=== PATIENT | male | born 1945 | race Caucasian/White ===

== ENCOUNTER 2020-06-14 14:33 | Emergency (ER) | payer MEDICARE, SELFPAY ==
--- NOTE | 2020-06-14 14:56 | XRR_ITS ---
PROCEDURE INFORMATION: Exam: XR Chest, 1 View Exam date and time: 06/14/2020 3:20 PM Age: 75 years old Clinical indication: Cough; Additional info: Cough, hypoxia, covid TECHNIQUE: Imaging protocol: XR of the chest Views: 1 view. COMPARISON: CR Chest 1 [place] [id number] 01/20/2017 11:29 AM FINDINGS: Lungs: Bilateral opacities consistent with pneumonia, more prominent in the left lower lung. Pleural space: No pleural effusion, no pneumothorax. Heart/Mediastinum: Unremarkable. No cardiomegaly. Bones/joints: No acute findings. XR/XR chest 1V portable [id number] IMPRESSION: Bilateral pneumonia consistent with COVID-19 pneumonia.
--- NOTE | 2020-06-14 14:56 | CTR_ITS ---
PROCEDURE INFORMATION: Exam: CT Head Without Contrast Exam date and time: 06/14/2020 3:02 PM Age: 75 years old Clinical indication: Injury or trauma; Fall; Blunt trauma (contusions or hematomas); Additional info: Fall, AMS TECHNIQUE: Imaging protocol: Computed tomography of the head without contrast. Radiation optimization: All CT scans at this facility use at least one of these dose optimization techniques: automated exposure control; mA and/or kV adjustment per patient size (includes targeted exams where dose is matched to clinical indication); or iterative reconstruction. COMPARISON: CT head wo con* [id number] 01/20/2017 12:52 PM RADIATION DOSE METRICS: Total DLP (mGy-cm): 913.3 FINDINGS: Brain: No hemorrhage. Unremarkable white matter. No mass effect. Cerebral ventricles: Minimal ventricular dilatation. Bones/joints: Unremarkable. No acute fracture. Paranasal sinuses: Visualized sinuses are unremarkable. No fluid levels. Mastoid air cells: Unremarkable. Soft tissues: Unremarkable. CT/CT head wo con* [id number] IMPRESSION: No acute intracranial abnormality. Radiation Dose CTDIVOL = (mGy): DLP = 913.3 (mGy-cm)
--- NOTE | 2020-06-14 14:57 | ECG_ITS ---
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 Measurements Intervals [place] Rate: 89 P: 51 SC: 158 QRS: -12 QRSD: 89 T: 39 QT: 321 QTc: 390 Interpretive Statements SINUS RHYTHM POSSIBLE LEFT ATRIAL ENLARGEMENT [-0.1mV P WAVE IN V1/V2] POSSIBLE LEFT VENTRICULAR HYPERTROPHY [VOLTAGE CRITERIA PLUS LAE OR QRS WIDENING] Compared to ECG 01/20/2017 18:23:12 Sinus bradycardia no longer present T-wave abnormality no longer present Possible ischemia no longer present Electronically Signed On 06-14-2020 16:01:31 CDT by Marzena Armendariz M.D. [id number]
[2020-06-14 15:10] VITALS: BP 156/75; PULSE 100; RESP 18; O2SAT 95
[2020-06-14 15:20] VITALS: BP 156/75; PULSE 100; RESP 19; O2SAT 95
[2020-06-14 15:30] LABS: Basophils % 0.2 %; Hemoglobin 11.8 g/dL (11.7-16.6); Lymphocytes # 0.5 10^3/uL (0.8-4.8); Lymphocytes % 7.5 %; Mean Corpuscular HGB Conc 31.1 g/dL (30.0-36.0); Mean Corpuscular Volume 106.1 fL (80-94); Mean Platelet Volume 8.9 fL (7.4-10.4); Monocytes # 0.3 10^3/uL (0.2-0.9); Monocytes % 4.2 %; Neutrophils # 5.55 10^3/uL (1.8-7.7); Neutrophils % 86.7 %; Nucleated Red Blood Cells % 0 %; Platelet Count 241 10^3/cmm (130-400); Red Blood Count 3.58 10^6/uL (4.1-5.3); Red Cell Distribution Width 12.6 % (12.1-15.1); White Blood Count 6.4 10^3/uL (4.0-10.0)
[2020-06-14 15:55] LABS: Lactic Sepsis W/Reflex 0.7 mmol/L (0.5-2.2)
[2020-06-14 15:57] LABS: Troponin(5th) Baseline 45 ng/L (0-15)
[2020-06-14 16:08] LABS: NT Pro B Type Natriuretic Pept 505 pg/mL (0-450); Procalcitonin 0.27 ng/mL (0-0.5)
[2020-06-14 16:19] LABS: Alanine Aminotransferase 11 U/L (0-41); Albumin Level 2.8 g/dL (3.5-5.2); Alkaline Phosphatase 45 IU/L (40-130); Anion Gap 16.5 (5-19); Aspartate Amino Transferase 19 U/L (0-40); Blood Urea Nitrogen 36 mg/dL (8-23); Calcium 8.8 mg/dL (8.5-10.5); Carbon Dioxide 25 mmol/L (22-29); Chloride 100 mmol/L (98-107); Glucose 133 mg/dL (65-115); Osmolality Calculated 292 mOsm/kg (285-295); Potassium 5.5 mmol/L (3.5-5.1); Sodium 136 mmol/L (136-145); Total Bilirubin 0.3 mg/dL (0.15-1.2); Total Protein 6.8 g/dL (6.6-8.7)
[2020-06-14 16:39] LABS: Add Urine Microscopic? YES; Bilirubin Urine Neg (Negative); Blood Urine 3+ (Negative); Glucose Urine UA Norm (Normal); Ketones Urine 1+ (Negative); Leukocyte Esterase Urine Negative (Negative); Nitrate Urine Negative (Negative); Protein Urine Neg (Negative); Specific Gravity, Urine 1.015 (1.005-1.030); Urine Appearance Clear (CLEAR); Urine Color Yellow (Yellow); Urobilinogen Urine Norm (Negative)
--- NOTE | 2020-06-14 16:57 | ECG_ITS ---
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 Measurements Intervals [place] Rate: 97 P: 49 [place]: 154 QRS: -17 QRSD: 85 T: 46 QT: 317 QTc: 404 Interpretive Statements SINUS RHYTHM POSSIBLE LEFT ATRIAL ENLARGEMENT [-0.1mV P WAVE IN V1/V2] Compared to ECG 06/14/2020 15:30:30 No significant changes Electronically Signed On 06-14-2020 17:27:27 CDT by Marzena Armendariz M.D. [email or web address] [id number] f
[2020-06-14 17:03] LABS: Add Urine Culture? Yes; Bacteria Urine TRACE /hpf; Mucus Urine 1+ /hpf; RBC Urine 40-50 /hpf (0-2); Squamous Epithelial Cell Urine 0-4 /hpf (0-5)
--- NOTE | 2020-06-14 17:24 | ED_ITS ---
HPI - Altered Mental Status General: Chief Complaint: Altered Mental Status Stated Complaint: AMS Time Seen by Provider: 06/14/20 14:34 History of Present Illness: HPI narrative: This patient is a 75-year-old male comes in from [facility] skilled nursing. He was sent over for altered mental status. He has a known diagnosis of Covid. Apparently he was diagnosed with a secondary bacterial infection yesterday and put on Levaquin. He has been on 4 L of oxygen. EMS said his sats were 89% on that and they have increased him to 6 L which he now has a sat of 97. Apparently his mental status change involves repetitive questioning and losing his train of thought. I am not sure what his baseline is or how far off his baseline this is. On my exam he is awake, alert initially was oriented but then became disoriented and was not sure if he had missed lunch or dinner. It was 2:30 in the afternoon. MD complaint: confusion Onset (ago): unknown Severity: moderate Consistency of symptoms: Waxing and Waning Review of Systems General: Reports: ROS unobtainable due to medical condition and ROS unobtainable due to mental status Physical Exam Const: COMMON NORMALS: no acute distress, no limitations and alert GENERAL APPEARANCE: cooperative and comfortable HENMT: HEAD & SCALP: normal to inspection FACE & SINUS: normal facial exam Eye: GENERAL EYE: appearance normal, both eyes and all related structures Neck/C-Spine: COMMON NORMALS: supple, no meningeal signs and no JVD Chest: COMMONS NORMALS: normal inspection of the chest Resp: COMMON NORMALS: normal respiratory effort, No use of accessory muscles and clear to auscultation bilaterally AUSCULTATION: clear to auscultation bilaterally Cardio: COMMON NORMALS: no JVD, regular rate, regular rhythm and No murmurs present (Cardio) RATE: regular rate RHYTHM: regular rhythm GI: COMMON NORMALS: Normal to inspection, nondistended, normoactive bowel sounds present, Soft to palpation and non-tender INSPECTION: Yes normal to inspection AUSCULTATION: Yes normoactive bowel sounds PALPATION: Yes Soft to palpation Back/Pelvis: COMMON NORMALS: thoracic and lumbar spine normal to inspection Extremity: COMMON NORMALS: normal to inspection Neuro: DEVIKA COMA SCALE: document GCS findings Ronan coma scale eye opening: Spontaneous Ronan coma scale verbal response: Confused Devika coma scale motor response: Obey commands Devika coma scale total score: 14 COMMON NORMALS: moves all extremities, no focal motor deficits and no sensory deficits noted SENSORIUM/ORIENTATION: Yes alert MENINGEAL SIGNS: Yes no meningeal signs CRANIAL NERVES: Yes CN normal except as noted Psych: COMMON NORMALS: mental status grossly normal, cooperative and normal affect Skin: COMMON NORMALS: no rashes or lesions noted and turgor normal GENERAL SKIN EXAM: no rashes or lesions noted and turgor normal Course ED course: Chest x-ray does show patchy pneumonia which is consistent with Covid. There could be some bacterial component to it. The patient's work-up including labs and x-ray was pretty unremarkable. His inflammatory markers are not very high. Procalcitonin was negative. CT of his head is still pending as apparently he fell a few days ago and hit his head. If his CT is negative I plan to send him back to the skilled nursing. His sister called and I spoke to her on the phone regarding his condition and plan of care. Vital Signs: Vital signs: Vital Signs Pulse Rate 82 06/14/20 18:22 Respiratory Rate 18 06/14/20 18:22 Blood Pressure 175/72 06/14/20 18:22 Pulse Oximetry 95 06/14/20 18:22 MDM - Altered Mental Status Lab Data: Labs: Lab Results 06/14/20 06/14/20 06/14/20 Range/Units 15:07 15:07 15:07 WBC 6.4 (4.0-10.0) 10^3/ uL RBC 3.58 L (4.1-5.3) 10^6/u L Hgb 11.8 (11.7-16.6) g/dL Hct 38.0 L (42.0-52.0) % MCV 106.1 H (80-94) fL MCH 33.0 (28.0-34.0) pg MCHC 31.1 (30.0-36.0) g/dL RDW 12.6 (12.1-15.1) % Plt Count 241 (130-400) 10^3/c mm MPV 8.9 (7.4-10.4) fL Neut % (Auto) 86.7 % Lymph % (Auto) 7.5 % Graves % (Auto) 4.2 % Eos % (Auto) 0.0 % Baso % (Auto) 0.2 % Neut # (Auto) 5.55 (1.8-7.7) 10^3/u L Lymph # (Auto) 0.5 L (0.8-4.8) 10^3/u L Graves # (Auto) 0.3 (0.2-0.9) 10^3/u L Eos # (Auto) 0.0 (0.0-0.8) 10^3/u L Baso # (Auto) 0.0 (0.0-0.1) 10^3/u L Nucleated RBC % (a uto) 0 % Nucleated RBCs # 0.0 /100WBC Sodium 136 (136-145) mmol/L Potassium 5.5 H (3.5-5.1) mmol/L Chloride 100 (98-107) mmol/L Carbon Dioxide 25 (22-29) mmol/L Anion Gap 16.5 (5-19) BUN 36 H (8-23) mg/dL Creatinine 1.2 (0.7-1.2) mg/dL GFR Calculation Not Reportable Glucose 133 H (65-115) mg/dL Calculated Osmolal ity 292 (285-295) mOsm/k g Lactic Acid 0.7 (0.5-2.2) mmol/L Calcium 8.8 (8.5-10.5) mg/dL Total Bilirubin 0.3 (0.15-1.2) mg/dL AST 19 (0-40) U/L ALT 11 (0-41) U/L Alkaline Phosphata se 45 (40-130) IU/L Troponin T Baselin e (0-15) ng/L NT-Pro-B Natriuret Pep 505 H (0-450) pg/mL Total Protein 6.8 (6.6-8.7) g/dL Albumin 2.8 L (3.5-5.2) g/dL Globulin 4.0 (1.3-4.6) g/dL Procalcitonin 0.27 (0-0.5) ng/mL Urine Color (Yellow) Urine Appearance (CLEAR) Urine pH (5-7) Ur Specific Gravit y (1.005-1.030) Urine Protein (Negative) Urine Glucose (UA) (Normal) Urine Ketones (Negative) Urine Blood (Negative) Urine Nitrate (Negative) Urine Bilirubin (Negative) Urine Urobilinogen (Negative) mg/dL Ur Leukocyte Cara ase (Negative) Urine RBC (0-2) /hpf Urine WBC (0-5) /hpf Ur Squamous Epith Cells (0-5) /hpf Amorphous Sediment Urine Bacteria (NONE) /hpf Urine Mucus /hpf 06/14/20 06/14/20 Range/Units 15:07 15:39 WBC (4.0-10.0) 10^3/ uL RBC (4.1-5.3) 10^6/u L Hgb (11.7-16.6) g/dL Hct (42.0-52.0) % MCV (80-94) fL MCH (28.0-34.0) pg MCHC (30.0-36.0) g/dL RDW (12.1-15.1) % Plt Count (130-400) 10^3/c mm MPV (7.4-10.4) fL Neut % (Auto) % Lymph % (Auto) % Graves % (Auto) % Eos % (Auto) % Baso % (Auto) % Neut # (Auto) (1.8-7.7) 10^3/u L Lymph # (Auto) (0.8-4.8) 10^3/u L Graves # (Auto) (0.2-0.9) 10^3/u L Eos # (Auto) (0.0-0.8) 10^3/u L Baso # (Auto) (0.0-0.1) 10^3/u L Nucleated RBC % (a uto) % Nucleated RBCs # /100WBC Sodium (136-145) mmol/L Potassium (3.5-5.1) mmol/L Chloride (98-107) mmol/L Carbon Dioxide (22-29) mmol/L Anion Gap (5-19) BUN (8-23) mg/dL Creatinine (0.7-1.2) mg/dL GFR Calculation Glucose (65-115) mg/dL Calculated Osmolal ity (285-295) mOsm/k g Lactic Acid (0.5-2.2) mmol/L Calcium (8.5-10.5) mg/dL Total Bilirubin (0.15-1.2) mg/dL AST (0-40) U/L ALT (0-41) U/L Alkaline Phosphata se (40-130) IU/L Troponin T Baselin e 45 H (0-15) ng/L NT-Pro-B Natriuret Pep (0-450) pg/mL Total Protein (6.6-8.7) g/dL Albumin (3.5-5.2) g/dL Globulin (1.3-4.6) g/dL Procalcitonin (0-0.5) ng/mL Urine Color Yellow (Yellow) Urine Appearance Clear (CLEAR) Urine pH 5.0 (5-7) Ur Specific Gravit y 1.015 (1.005-1.030) Urine Protein Neg (Negative) Urine Glucose (UA) Norm (Normal) Urine Ketones 1+ H (Negative) Urine Blood 3+ H (Negative) Urine Nitrate Negative (Negative) Urine Bilirubin Neg (Negative) Urine Urobilinogen Norm (Negative) mg/dL Ur Leukocyte Cara ase Negative (Negative) Urine RBC 40-50 H (0-2) /hpf Urine WBC None (0-5) /hpf Ur Squamous Epith Cells 0-4 H (0-5) /hpf Amorphous Sediment Not Reportable Urine Bacteria Trace (NONE) /hpf Urine Mucus 1+ /hpf Discharge Plan Discharge Patient Disposition: Home Clinical Impression: COVID-19 Pneumonia Qualifiers: Pneumonia type: due to unspecified organism Laterality: bilateral Lung location: unspecified part of lung Qualified Code(s): J18.9 - Pneumonia, unspecified organism Condition: Stable Discharge Orders: Discharge Order (Routine); Ordered 06/14/20 Ordered By: Luna Carlson Referrals: Madelin Venegas MD [Primary Care Provider] - Discharge Diet: Usual diet Discharge Activity: Resume usual activity Patient Instructions: Pneumonia (ED) Activity Restrictions/Additional Instructions: Continue antibiotics as prescribed. Continue oxygen. Continue other regular medications. 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
[2020-06-14 17:51] VITALS: BP 149/61; O2SAT 94
[2020-06-14 18:22] VITALS: BP 175/72; PULSE 82; RESP 18; O2SAT 95
== END 2020-06-14 20:50 | disposition home or self-care (01) ==
PROVIDERS: Emergency Provider Emergency Medicine; PCP Family Medicine
DX: U07.1 COVID-19 (principal); J12.89 Other viral pneumonia
CPT/HCPCS: 12345; 70450; 71045; 80053; 81001; 83605; 83880; 84145; 84484; 85025; 87086; 93005; 99282; 99284

== ENCOUNTER 2021-11-23 14:35 | Emergency (ER) | payer MEDICARE, SELFPAY ==
[2021-11-23] VITALS (8 sets, daily range): BP systolic 106–184; BP diastolic 54–103; PULSE 87–108; RESP 10–22; O2SAT 90–96
--- NOTE | 2021-11-23 14:46 | CT_ITS ---
WS: [id number] CT HEAD NONCONTRAST HISTORY: Symptoms of Acute Stroke, right-sided weakness, confusion. TECHNIQUE: Contiguous axial imaging performed through the brain in 2.5 mm imaging. Bone and soft tiss ue windows. Sagittal and coronal reformats reviewed. All CT scans at [facility] use at least one of these dose optimization techniques: automated exposure control; mA and/or kV adjustment per pa tient size (includes targeted exams where dose is matched to clinical indication); or iterative recon struction. DLP: 1070.65 mGy.cm COMPARISON: 06/14/2020 No acute intracranial hemorrhage, midline shift or mass effect. Mild atrophy and minimal chronic microvascular ischemic changes. No infarct. No sulcal effacement. Ventricles: Normal size with no hydrocephalus. Paranasal sinuses: Small amount mucoperiosteal thickening in the LEFT frontal ethmoid recess. No air- fluid levels within the sinuses. Mastoid air cells: Well pneumatized. Calvarium and scalp: Skull is intact with no soft tissue edema or swelling. CT/CT head wo con* [id number] IMPRESSION: 1. No acute intracranial hemorrhage or edema. 2. Mild atrophy and mild chronic microvascular ischemic disease. Notified Eliazar Rodas DO at 11/23/2021 3:07 PM.
--- NOTE | 2021-11-23 14:46 | ECG_ITS ---
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 Measurements Intervals [place] Rate: 92 P: 57 [place]: 183 QRS: -28 QRSD: 93 T: 58 QT: 352 QTc: 436 Interpretive Statements SINUS RHYTHM POSSIBLE LEFT ATRIAL ENLARGEMENT [-0.1mV P-WAVE IN V1/V2] BORDERLINE LEFT AXIS DEVIATION [QRS AXIS < -20] POSSIBLE LEFT VENTRICULAR HYPERTROPHY [VOLTAGE CRITERIA PLUS LAE OR QRS WIDENING] NONSPECIFIC T-WAVE ABNORMALITY Compared to ECG 06/14/2020 17:12:08 T-wave abnormality now present Electronically Signed On 11-24-2021 11:11:09 CDT by Marzena Armendariz M.D. [id number]
--- NOTE | 2021-11-23 14:48 | W.ED.NEUROSD ---
Documented by User: Eliazar Rodas DO 11/28/21 08:37 HPI - Neuro Symptoms/Deficit General: Chief Complaint: Neuro Symptoms/Deficit Stated Complaint: FALL/AMS Time Seen by Provider: 11/23/21 14:35 Source: patient Mode of arrival: EMS Limitations: altered mental status History of Present Illness: 76-year-old male who presents to the emergency room via EMS. He was reported by skilled nursing staff Around 1230 Today in the Bathroom. They Are Doing Serial Neuro Checks Alimented 1405 He Was Noted to Have Difficulty with His Right Side As Well As Right-Sided Facial Droop As Well As Having Developed Some Dysarthria and Word Finding Difficulties. They Did Note That He Recently Had Stopped Receiving Scheduled Morphine He Was Getting 15 Mg Twice Daily up until Today. I Called and Talked to the Nurse Who Usually Takes Care Of Him and Confirmed That All of the Symptoms Are New. Patient denies any chest pain or shortness of breath. He is difficult to test as he is argumentative with instructions for simple testing such as leg raising testing for forearm drift and other physical test as part of the NIH score. Onset (ago): minute(s) Time: 14:35 Last Observed Normal: 14:05 Location: speech and right face Severity: mild Quality: weak Relieving factors: none Exacerbating factors: none Context: sudden onset Associated symptoms: Deny chest pain, cough, diaphoresis, fevers/chills, headache(s), anorexia, malaise, nausea, seizures, short of breath, syncope, tingling, vertigo, vomiting or weakness Treatments Prior to Arrival: none Review of Systems Const: Denies: fever(s), chills, malaise or diaphoresis ENMT: Denies: throat pain, ear or mastoid pain or ear discharge Card: Denies: chest pain, palpitations, irregular heart rhythm, lightheadedness or syncope Resp: Denies: dyspnea, productive cough or non-productive cough GI: Denies: nausea or vomiting : Denies: flank pain, dysuria, urinary frequency or urinary urgency Skin/Breast: Denies: rash or pruritus Neuro: Denies: headache(s) or vertigo NIH stroke score NIHSS: Level Of Consciousness - 1a: 2 Level Of Consciousness Questions - 1b: Neither Correct Level Of Consciousness Commands - 1c: Both Correct Best Gaze - 2: Normal Visual Hernandez - 3: Partial Hemianopia Facial Palsy - 4: Minor Paralysis Motor Arm Right - 5: Drift Motor Arm Left - 5: No Drift Motor Leg Right - 6: Drift Motor Leg Left - 6: No Drift Limb Ataxia - 7: Present In Two Limbs Sensory - 8: Mild To Moderate Loss Best Language - 9: No Aphasia Dysarthia - 10: Mild/Moderate Dysarthia Extinction And Inattention - 11: 1 Score: Total Score: 13 Physical Exam Const: GENERAL APPEARANCE: cooperative and comfortable ORIENTATION/CONSCIOUSNESS: Yes awake HENMT: COMMON NORMALS: normocephalic and hearing grossly normal bilaterally HEAD & SCALP: normocephalic OTHER: Superficial abrasion and bruising on the right mid mandible inferiorly no active bleeding Eye: COMMON NORMALS: Equal, round and reactive pupils present, EOMs intact bilaterally, conjunctivae normal and no scleral icterus CONJUNCTIVA: Yes conjunctivae normal PUPIL: Yes Equal, round and reactive pupils present Neck/C-Spine: COMMON NORMALS: no JVD Resp: COMMON NORMALS: normal respiratory effort, No retractions, No use of accessory muscles and clear to auscultation bilaterally AUSCULTATION: clear to auscultation bilaterally Cardio: COMMON NORMALS: no JVD, regular rate, regular rhythm and No murmurs present (Cardio) RATE: regular rate RHYTHM: regular rhythm GI: COMMON NORMALS: Soft to palpation and No hepatosplenomegaly present AUSCULTATION: Yes normoactive bowel sounds PALPATION: Yes Soft to palpation, No Tenderness to palpation present (GI), No Guarding due to palpation present (GI) and Yes No hepatosplenomegaly present Extremity: COMMON NORMALS: normal to inspection, capillary refill normal, no clubbing, cyanosis or edema, no calf tenderness and no pedal edema Skin: COMMON NORMALS: no rashes or lesions noted GENERAL SKIN EXAM: no rashes or lesions noted Course Vital Signs: Vital signs: Vital Signs Pulse Rate 93 11/23/21 20:59 Respiratory Rate 18 11/23/21 20:59 Blood Pressure 106/67 11/23/21 20:59 Pulse Oximetry 95 11/23/21 20:59 MDM - Neuro Symptoms/Deficit Medical Decision Making Discussed with [facility] on-call they agree given his stroke score normal CT to go ahead and use TPA. Discussed with the patient's discussed risks and benefits he wishes to proceed. 1638 nursing staff had advised that there is increased swelling on the right lower jaw at the site of an abrasion. Went in to see the patient he does not have any muffled voice is not have difficulty breathing but he does have a large hematoma developing the submandibular area extending to the midline of the neck. His symptoms have improved and his phonation is better. He is able to move his right arm and leg better than he had previously ataxia has improved however he is a significant hematoma developing TPA was stopped. CTA of the head and neck will be done emergently. Care turned over to Dr. Whitfield at change of shift hematoma is expanding TPA has been stopped suspect patient will need intubation to protect his airway and transfer as we do not have ENT available at this time I did talk to Dr. Garrison he will come in and evaluate the patient to advise. Patient had expanding neck hematoma did have to intubate him due to airway compromise. Was a very difficult intubation he never was hypoxic though. Patient excepted to [facility] by Dr. Potter. Medical Records I reviewed the patient's medical records. Lab Data I reviewed the patient's lab results. : 11/23/21 20:01 11/23/21 14:[address] 11/23/21 14:46 IMPRESSION: 1. No acute intracranial hemorrhage or edema. 2. Mild atrophy and mild chronic microvascular ischemic disease. Notified Eliazar Rodas DO at 11/23/2021 3:07 PM. Head/Neck CTA 11/23/21 15:56 IMPRESSION: 1. Distal left middle cerebral artery stenosis. No major occlusion or embolus is identified. 2. Multiple small cortical hyperdensities worrisome for small areas of subarachnoid or focal parenchymal hemorrhage. 3. No large intracranial hemorrhage is identified. IMPRESSION: 1. Moderate right internal carotid artery stenosis. 2. Mild left internal carotid artery stenosis. 3. Marked swelling on the right side of the face is likely due largely to hematoma and posttraumatic changes. ENT consultation suggested. COMMENTS: THIS REPORT CONTAINS FINDINGS THAT MAY BE CRITICAL TO PATIENT CARE. The findings were verbally communicated via telephone conference with ELIAZAR RODAS at 5:49 PM CDT on 11/23/2021. The findings were acknowledged and understood. REFERENCES: NASCET CRITERIA. The degree of internal carotid artery stenosis is based on NASCET criteria. Normal is no stenosis. Mild is less than 50% stenosis. Moderate is 50-69% stenosis. Severe is 70% to 99% stenosis. Total occlusion is no detectable patent lumen. Chest X-Ray 11/23/21 18:44 IMPRESSION: Satisfactory position of endotracheal tube. Laboratory Results WBC 10.2 10^3/uL (4.0-10.0) H 11/23/21 14:58 RBC 4.44 10^6/uL (4.1-5.3) 11/23/21 14:58 Hgb 12.5 g/dL (11.7-16.6) 11/23/21 20:01 Hct 38.2 % (42.0-52.0) L 11/23/21 20:01 MCV 105.9 fl (80-94) H 11/23/21 14:58 MCH 33.3 pg (28.0-34.0) 11/23/21 14:58 MCHC 31.5 g/dL (30.0-36.0) 11/23/21 14:58 RDW 13.8 % (12.1-15.1) 11/23/21 14:58 Plt Count 184 10^3/cmm (130-400) 11/23/21 14:58 MPV 9.4 fL (7.4-10.4) 11/23/21 14:58 Neut % (Auto) 71.4 % 11/23/21 14:58 Lymph % (Auto) 18.1 % 11/23/21 14:58 Crenshaw % (Auto) 9.5 % 11/23/21 14:58 Eos % (Auto) 0.2 % 11/23/21 14:58 Baso % (Auto) 0.2 % 11/23/21 14:58 Neut # (Auto) 7.28 10^3/uL (1.8-7.7) 11/23/21 14:58 Lymph # (Auto) 1.8 10^3/uL (0.8-4.8) 11/23/21 14:58 Crenshaw # (Auto) 1.0 10^3/uL (0.2-0.9) H 11/23/21 14:58 Eos # (Auto) 0.0 10^3/uL (0.0-0.8) 11/23/21 14:58 Baso # (Auto) 0.0 10^3/uL (0.0-0.1) 11/23/21 14:58 Nucleated RBC % (auto) 0 % 11/23/21 14:58 Nucleated RBCs # 0.0 /100WBC 11/23/21 14:58 PT 12.90 SECONDS (12.1-14.9) 11/23/21 14:58 INR 0.94 (0.8-1.2) 11/23/21 14:58 APTT 28.3 SECONDS (23.9-36.7) 11/23/21 14:58 Sodium 139 mmol/L (136-145) 11/23/21 14:58 Potassium 4.5 mmol/L (3.5-5.1) 11/23/21 14:58 Chloride 100 mmol/L (98-107) 11/23/21 14:58 Carbon Dioxide 17 mmol/L (22-29) L 11/23/21 14:58 Anion Gap 26.5 (5-19) H 11/23/21 14:58 BUN 20 mg/dL (8-23) 11/23/21 14:58 Creatinine 1.4 mg/dL (0.7-1.2) H 11/23/21 14:58 GFR Calculation Not Reportable 11/23/21 14:58 Glucose 137 mg/dL (65-115) H 11/23/21 14:58 POC Glucose 123 mg/dL (70-110) H 11/23/21 15:09 Calculated Osmolality 293 mOsm/kg (285-295) 11/23/21 14:58 Calcium 9.7 mg/dL (8.5-10.5) 11/23/21 14:58 Total Bilirubin 0.5 mg/dL (0.15-1.2) 11/23/21 14:58 AST 30 U/L (0-40) 11/23/21 14:58 ALT 7 U/L (0-41) 11/23/21 14:58 Alkaline Phosphatase 59 IU/L (40-130) 11/23/21 14:58 Total Protein 6.6 g/dL (6.6-8.7) 11/23/21 14:58 Albumin 4.3 g/dL (3.5-5.2) 11/23/21 14:58 Globulin 2.3 g/dL (1.3-4.6) 11/23/21 14:58 Urine Color Straw (Yellow) 11/23/21 17:43 Urine Appearance Clear (CLEAR) 11/23/21 17:43 Urine pH 8 (5-7) H 11/23/21 17:43 Ur Specific [place] 1.010 (1.005-1.030) 11/23/21 17:43 Urine Protein Neg (Negative) 11/23/21 17:43 Urine Glucose (UA) Norm (Normal) 11/23/21 17:43 Urine Ketones 1+ (Negative) H 11/23/21 17:43 Urine Blood 3+ (Negative) H 11/23/21 17:43 Urine Nitrate Negative (Negative) 11/23/21 17:43 Urine Bilirubin Neg (Negative) 11/23/21 17:43 Prot Sulfosalicylic Acd Negative (Negative) 11/23/21 17:43 Urine Urobilinogen Neg mg/dL (Negative) 11/23/21 17:43 Ur Leukocyte Esterase Negative (Negative) 11/23/21 17:43 Urine RBC 10-15 /hpf (0-2) H 11/23/21 17:43 Urine WBC None /hpf (0-5) 11/23/21 17:43 Ur Squamous Epith Cells Rare /hpf (0-5) 11/23/21 17:43 Amorphous Sediment Not Reportable 11/23/21 17:43 Urine Bacteria None /hpf (NONE) 11/23/21 17:43 Urine Opiates Screen Positive ng/mL (Negative) H 11/23/21 17:43 Ur Barbiturates Screen Negative ng/mL (Negative) 11/23/21 17:43 Ur Phencyclidine Scrn Negative ng/mL (Negative) 11/23/21 17:43 Ur Amphetamines Screen Negative ng/mL (Negative) 11/23/21 17:43 U Benzodiazepines Scrn Negative ng/mL (Negative) 11/23/21 17:43 Urine Cocaine Screen Negative ng/mL (Negative) 11/23/21 17:43 U Marijuana (THC) Screen Negative ng/mL (Negative) 11/23/21 17:43 SARS-CoV-2 Ag (Rapid) Negative (Negative) 11/23/21 21:13 Discharge Plan Discharge Patient Disposition: Xfer Short-Term Hosp Clinical Impression: Cerebrovascular accident, Hematoma of neck Condition: Stable Referrals: Madelin Venegas MD [Primary Care Provider] - Coding Level of Care Code ED [facility] for Chg Fwd Exam Comprehensive Documented by User: Isidoro Whitfield MD 11/23/21 20:12 HPI - Neuro Symptoms/Deficit General: Chief Complaint: Neuro Symptoms/Deficit Stated Complaint: FALL/AMS Time Seen by Provider: 11/23/21 14:35 NIH stroke score Score: Total Score: 13 Procedures Intubation Time out performed: Yes sedative: Etomidate Mg Given: 10 paralytic: Succinylcholine Mg Given: 150 Assist Device Used: Bougie ET Tube Size: 7.5 ET Tube Uncuffed: No Tube Secured Depth (cm): 26 Tube Secured Location: lips Tube Placement Confirmation: visualized tube passing through cords Patient Tolerated Procedure: well Intubation Complications: none Course Vital Signs: Vital signs: Vital Signs Pulse Rate 93 11/23/21 20:59 Respiratory Rate 18 11/23/21 20:59 Blood Pressure 106/67 11/23/21 20:59 Pulse Oximetry 95 11/23/21 20:59 MDM - Neuro Symptoms/Deficit Medical Decision Making Discussed with [facility] on-call they agree given his stroke score normal CT to go ahead and use TPA. Discussed with the patient's discussed risks and benefits he wishes to proceed. 1609 nursing staff had advised that there is increased swelling on the right lower jaw at the site of an abrasion. Went in to see the patient he does not have any muffled voice is not have difficulty breathing but he does have a large hematoma developing the submandibular area extending to the midline of the neck. His symptoms have improved and his phonation is better. He is able to move his right arm and leg better than he had previously ataxia has improved however he is a significant hematoma developing TPA was stopped. CTA of the head and neck will be done emergently. Patient had expanding neck hematoma did have to intubate him due to airway compromise. Was a very difficult intubation he never was hypoxic though. Patient excepted to [facility] by Dr. Potter. Lab Data : 11/23/21 20:01 11/23/21 14:[address] 11/23/21 14:46 IMPRESSION: 1. No acute intracranial hemorrhage or edema. 2. Mild atrophy and mild chronic microvascular ischemic disease. Notified Eliazar Rodas DO at 11/23/2021 3:07 PM. Head/Neck CTA 11/23/21 15:56 IMPRESSION: 1. Distal left middle cerebral artery stenosis. No major occlusion or embolus is identified. 2. Multiple small cortical hyperdensities worrisome for small areas of subarachnoid or focal parenchymal hemorrhage. 3. No large intracranial hemorrhage is identified. IMPRESSION: 1. Moderate right internal carotid artery stenosis. 2. Mild left internal carotid artery stenosis. 3. Marked swelling on the right side of the face is likely due largely to hematoma and posttraumatic changes. ENT consultation suggested. COMMENTS: THIS REPORT CONTAINS FINDINGS THAT MAY BE CRITICAL TO PATIENT CARE. The findings were verbally communicated via telephone conference with ELIAZAR RODAS at 5:49 PM CDT on 11/23/2021. The findings were acknowledged and understood. REFERENCES: NASCET CRITERIA. The degree of internal carotid artery stenosis is based on NASCET criteria. Normal is no stenosis. Mild is less than 50% stenosis. Moderate is 50-69% stenosis. Severe is 70% to 99% stenosis. Total occlusion is no detectable patent lumen. Chest X-Ray 11/23/21 18:44 IMPRESSION: Satisfactory position of endotracheal tube. Laboratory Results WBC 10.2 10^3/uL (4.0-10.0) H 11/23/21 14:58 RBC 4.44 10^6/uL (4.1-5.3) 11/23/21 14:58 Hgb 12.5 g/dL (11.7-16.6) 11/23/21 20:01 Hct 38.2 % (42.0-52.0) L 11/23/21 20:01 MCV 105.9 fl (80-94) H 11/23/21 14:58 MCH 33.3 pg (28.0-34.0) 11/23/21 14:58 MCHC 31.5 g/dL (30.0-36.0) 11/23/21 14:58 RDW 13.8 % (12.1-15.1) 11/23/21 14:58 Plt Count 184 10^3/cmm (130-400) 11/23/21 14:58 MPV 9.4 fL (7.4-10.4) 11/23/21 14:58 Neut % (Auto) 71.4 % 11/23/21 14:58 Lymph % (Auto) 18.1 % 11/23/21 14:58 Crenshaw % (Auto) 9.5 % 11/23/21 14:58 Eos % (Auto) 0.2 % 11/23/21 14:58 Baso % (Auto) 0.2 % 11/23/21 14:58 Neut # (Auto) 7.28 10^3/uL (1.8-7.7) 11/23/21 14:58 Lymph # (Auto) 1.8 10^3/uL (0.8-4.8) 11/23/21 14:58 Crenshaw # (Auto) 1.0 10^3/uL (0.2-0.9) H 11/23/21 14:58 Eos # (Auto) 0.0 10^3/uL (0.0-0.8) 11/23/21 14:58 Baso # (Auto) 0.0 10^3/uL (0.0-0.1) 11/23/21 14:58 Nucleated RBC % (auto) 0 % 11/23/21 14:58 Nucleated RBCs # 0.0 /100WBC 11/23/21 14:58 PT 12.90 SECONDS (12.1-14.9) 11/23/21 14:58 INR 0.94 (0.8-1.2) 11/23/21 14:58 APTT 28.3 SECONDS (23.9-36.7) 11/23/21 14:58 Sodium 139 mmol/L (136-145) 11/23/21 14:58 Potassium 4.5 mmol/L (3.5-5.1) 11/23/21 14:58 Chloride 100 mmol/L (98-107) 11/23/21 14:58 Carbon Dioxide 17 mmol/L (22-29) L 11/23/21 14:58 Anion Gap 26.5 (5-19) H 11/23/21 14:58 BUN 20 mg/dL (8-23) 11/23/21 14:58 Creatinine 1.4 mg/dL (0.7-1.2) H 11/23/21 14:58 GFR Calculation Not Reportable 11/23/21 14:58 Glucose 137 mg/dL (65-115) H 11/23/21 14:58 POC Glucose 123 mg/dL (70-110) H 11/23/21 15:09 Calculated Osmolality 293 mOsm/kg (285-295) 11/23/21 14:58 Calcium 9.7 mg/dL (8.5-10.5) 11/23/21 14:58 Total Bilirubin 0.5 mg/dL (0.15-1.2) 11/23/21 14:58 AST 30 U/L (0-40) 11/23/21 14:58 ALT 7 U/L (0-41) 11/23/21 14:58 Alkaline Phosphatase 59 IU/L (40-130) 11/23/21 14:58 Total Protein 6.6 g/dL (6.6-8.7) 11/23/21 14:58 Albumin 4.3 g/dL (3.5-5.2) 11/23/21 14:58 Globulin 2.3 g/dL (1.3-4.6) 11/23/21 14:58 Urine Color Straw (Yellow) 11/23/21 17:43 Urine Appearance Clear (CLEAR) 11/23/21 17:43 Urine pH 8 (5-7) H 11/23/21 17:43 Ur Specific [place] 1.010 (1.005-1.030) 11/23/21 17:43 Urine Protein Neg (Negative) 11/23/21 17:43 Urine Glucose (UA) Norm (Normal) 11/23/21 17:43 Urine Ketones 1+ (Negative) H 11/23/21 17:43 Urine Blood 3+ (Negative) H 11/23/21 17:43 Urine Nitrate Negative (Negative) 11/23/21 17:43 Urine Bilirubin Neg (Negative) 11/23/21 17:43 Prot Sulfosalicylic Acd Negative (Negative) 11/23/21 17:43 Urine Urobilinogen Neg mg/dL (Negative) 11/23/21 17:43 Ur Leukocyte Esterase Negative (Negative) 11/23/21 17:43 Urine RBC 10-15 /hpf (0-2) H 11/23/21 17:43 Urine WBC None /hpf (0-5) 11/23/21 17:43 Ur Squamous Epith Cells Rare /hpf (0-5) 11/23/21 17:43 Amorphous Sediment Not Reportable 11/23/21 17:43 Urine Bacteria None /hpf (NONE) 11/23/21 17:43 Urine Opiates Screen Positive ng/mL (Negative) H 11/23/21 17:43 Ur Barbiturates Screen Negative ng/mL (Negative) 11/23/21 17:43 Ur Phencyclidine Scrn Negative ng/mL (Negative) 11/23/21 17:43 Ur Amphetamines Screen Negative ng/mL (Negative) 11/23/21 17:43 U Benzodiazepines Scrn Negative ng/mL (Negative) 11/23/21 17:43 Urine Cocaine Screen Negative ng/mL (Negative) 11/23/21 17:43 U Marijuana (THC) Screen Negative ng/mL (Negative) 11/23/21 17:43 SARS-CoV-2 Ag (Rapid) Negative (Negative) 11/23/21 21:13 Critical Care Time Critical Care Time: Critical Care Time: Yes Total Critical Care Time: 50 Attestation: The high probability of a clinically significant, sudden or life threatening deterioration of the patient's neuro system(s) required my full and direct attention, intervention and personal management. The critical care time is as shown. This time is in addition to time spent performing any reported procedures but includes the following: [x] Data and vital sign review and interpretation [x] Patient assessment, examination and intervention [x] Documentation [x] Medication orders and management Discharge Plan Discharge Patient Disposition: Xfer Short-Term Hosp Clinical Impression: Cerebrovascular accident, Hematoma of neck Condition: Stable Referrals: Madelin Venegas MD [Primary Care Provider] - Coding Level of Care Code ED [facility] for Chg Fwd Exam Comprehensive
[2021-11-23 15:09] LABS: Basophils % 0.2 %; Eosinophils % 0.2 %; Hemoglobin 14.8 g/dL (11.7-16.6); Lymphocytes # 1.8 10^3/uL (0.8-4.8); Lymphocytes % 18.1 %; Mean Corpuscular HGB Conc 31.5 g/dL (30.0-36.0); Mean Corpuscular Hemoglobin 33.3 pg (28.0-34.0); Mean Corpuscular Volume 105.9 fl (80-94); Mean Platelet Volume 9.4 fL (7.4-10.4); Monocytes % 9.5 %; Neutrophils # 7.28 10^3/uL (1.8-7.7); Neutrophils % 71.4 %; Nucleated Red Blood Cells % 0 %; Platelet Count 184 10^3/cmm (130-400); Red Blood Count 4.44 10^6/uL (4.1-5.3); Red Cell Distribution Width 13.8 % (12.1-15.1); White Blood Count 10.2 10^3/uL (4.0-10.0)
[2021-11-23] MEDS: labetalol 5 mg/mL SDV 20mL IVP (15:31)
[2021-11-23 15:33] LABS: Alanine Aminotransferase 7 U/L (0-41); Albumin Level 4.3 g/dL (3.5-5.2); Alkaline Phosphatase 59 IU/L (40-130); Blood Urea Nitrogen 20 mg/dL (8-23); Calcium 9.7 mg/dL (8.5-10.5); Carbon Dioxide 17 mmol/L (22-29); Chloride 100 mmol/L (98-107); Globulin 2.3 g/dL (1.3-4.6); Glucose 137 mg/dL (65-115); Osmolality Calculated 293 mOsm/kg (285-295); Sodium 139 mmol/L (136-145); Total Bilirubin 0.5 mg/dL (0.15-1.2); Total Protein 6.6 g/dL (6.6-8.7)
[2021-11-23 15:34] LABS: Anion Gap 26.5 (5-19); Aspartate Amino Transferase 30 U/L (0-40); Potassium 4.5 mmol/L (3.5-5.1)
--- NOTE | 2021-11-23 15:35 | PC.NURSE ---
Pt weight 242.7 pounds / 110/3 Kg
--- NOTE | 2021-11-23 15:56 | CTR_ITS ---
PROCEDURE INFORMATION: Exam: CT Angiography Head With Contrast, Arteriography Exam date and time: 11/23/2021 4:48 PM Age: 76 years old Clinical indication: Syncope and collapse; Patient HX: Possible stroke/ severe swelling right side jaw; Additional info: CVA TECHNIQUE: Imaging protocol: Computed tomography angiography of the head with contrast. Exam focused on the arteries. 3D rendering (Not supervised by radiologist): MIP and/or 3D reconstructed images were created by the technologist. Radiation optimization: All CT scans at this facility use at least one of these dose optimization techniques: automated exposure control; mA and/or kV adjustment per patient size (includes targeted exams where dose is matched to clinical indication); or iterative reconstruction. Contrast material: VISI 320; Contrast volume: 95 ml; Contrast route: INTRAVENOUS (IV); COMPARISON: 1. CT head wo con* [id number] 11/23/2021 2:[address] head wo con* [id number] 06/14/2020 5:17 PM RADIATION DOSE METRICS: Total DLP (mGy-cm): 2770.51 FINDINGS: ANTERIOR CIRCULATION: Right internal carotid artery: Unremarkable. Intracranial segment is patent with no significant stenosis. No aneurysm. Right middle cerebral artery: Unremarkable. No occlusion or significant stenosis. No aneurysm. Right anterior cerebral artery: Unremarkable. No occlusion or significant stenosis. No aneurysm. Left internal carotid artery: Unremarkable. Intracranial segment is patent with no significant stenosis. No aneurysm. Left middle cerebral artery: There is focal stenosis in the distal left middle cerebral artery at the trifurcation level. Left anterior cerebral artery: Unremarkable. No occlusion or significant stenosis. No aneurysm. POSTERIOR CIRCULATION: Right vertebral artery: Unremarkable. No occlusion or significant stenosis. No aneurysm. Left vertebral artery: Unremarkable. No occlusion or significant stenosis. No aneurysm. Basilar artery: Unremarkable. No occlusion or significant stenosis. No aneurysm. Right posterior cerebral artery: Unremarkable. No occlusion or significant stenosis. No aneurysm. Left posterior cerebral artery: Unremarkable. No occlusion or significant stenosis. No aneurysm. Brain: There are multiple small areas of hyperdensity in the brain on both sides more on the right than on the left which are not seen on the prior noncontrast CT brain. These may represent small areas of subarachnoid or petechial parenchymal hemorrhage. Follow-up in 12-24 hours is recommended for re-evaluation. No large intracranial hemorrhage is identified. Cerebral ventricles: No ventriculomegaly. Bones/joints: Unremarkable. No acute fracture. Soft tissues: Unremarkable. PROCEDURE INFORMATION: Exam: CT Angiography Neck With Contrast Exam date and time: 11/23/2021 4:48 PM Age: 76 years old Clinical indication: CVA. Patient fell earlier. Swelling on right side of face began after tPA administration. TECHNIQUE: Imaging protocol: Computed tomography angiography of the neck with contrast. 3D rendering (Not supervised by radiologist): MIP and/or 3D reconstructed images were created by the technologist. Radiation optimization: All CT scans at this facility use at least one of these dose optimization techniques: automated exposure control; mA and/or kV adjustment per patient size (includes targeted exams where dose is matched to clinical indication); or iterative reconstruction. Contrast material: VISI 320; Contrast volume: 95 ml; Contrast route: INTRAVENOUS (IV); COMPARISON: 1. CT head wo con* [id number] 11/23/2021 2:[address] head wo con* [id number] 06/14/2020 5:17 PM RADIATION DOSE METRICS: Total DLP (mGy-cm): 2770.51 FINDINGS: Right common carotid artery: No stenosis. No dissection or occlusion. Right internal carotid artery: There is atherosclerotic plaque and moderate focal stenosis in the origin of the right internal carotid artery with approximately 50% stenosis as measured according to the NASCET criteria. Right external carotid artery: No occlusion or stenosis of the origin. Left common carotid artery: No stenosis. No dissection or occlusion. Left internal carotid artery: There is atherosclerotic plaque at the left carotid bifurcation with focal stenosis in the proximal left internal carotid artery in the 30-50% range age as measured according to NASCET criteria. Left external carotid artery: No occlusion or stenosis of the origin. Right vertebral artery: There is some focal atherosclerotic plaque at the origin of the right vertebral artery with focal stenosis which cannot be further quantified but appears to be moderate to severe. Left vertebral artery: There is focal atherosclerotic calcification at the origin of the left vertebral artery with focal severe stenosis. Epiglottis: There is normal appearance of the right parapharyngeal soft tissues and the epiglottis is normal in appearance. Soft tissues: There is marked soft tissue swelling on the right side of the face extending down at the right side of the neck with stranding and edema in the subcutaneous soft tissues, and in the deep spaces of the right side of the neck, deep to the platysma and also in the right sublingual space. There is some bands of density that are suggestive of hematoma. There also some brightly enhancing vessels on the right side of the face which could represent focal AV fistula or hyperemia. There is a small skin lesion overlying the area on the right side of the face. Given the history of trauma and that this swelling arose after tPA administration it is very likely that this represents hematoma and posttraumatic bleeding. There are few bubbles of air seen on the right side of the face such as an image number 77 series 3 which raise concern for the possibility of infection which is less likely given the patient's history but infection is not excluded. The swelling and hematoma in the sublingual space deviates the tongue towards the left and displaces the or pharyngeal airway towards the left. ENT consultation is suggested. The airway is patent at this time. Bones/joints: There are degenerative changes in the cervical spine. No cervical spine fracture is identified. CT/CT angio headneck* [id number] IMPRESSION: 1. Distal left middle cerebral artery stenosis. No major occlusion or embolus is identified. 2. Multiple small cortical hyperdensities worrisome for small areas of subarachnoid or focal parenchymal hemorrhage. 3. No large intracranial hemorrhage is identified. IMPRESSION: 1. Moderate right internal carotid artery stenosis. 2. Mild left internal carotid artery stenosis. 3. Marked swelling on the right side of the face is likely due largely to hematoma and posttraumatic changes. ENT consultation suggested. COMMENTS: THIS REPORT CONTAINS FINDINGS THAT MAY BE CRITICAL TO PATIENT CARE. The findings were verbally communicated via telephone conference with KAREN VALLE at 5:49 PM CDT on 11/23/2021. The findings were acknowledged and understood. REFERENCES: NASCET CRITERIA. The degree of internal carotid artery stenosis is based on NASCET criteria. Normal is no stenosis. Mild is less than 50% stenosis. Moderate is 50-69% stenosis. Severe is 70% to 99% stenosis. Total occlusion is no detectable patent lumen.
[2021-11-23 16:07] LABS: INR 0.94 (0.8-1.2); Partial Thromboplastin Time 28.3 SECONDS (23.9-36.7)
[2021-11-23] MEDS: nicardipine 20 MG/200 ML PREMIX 50 MG IV (16:24)
--- NOTE | 2021-11-23 16:31 | PC.NURSE ---
dr. floyd at bedside vo to darius mock to stop tpa. tpa stopped.
--- NOTE | 2021-11-23 16:39 | PC.NURSE ---
Noticed growing hematoma on right side of neck around laceration from previous fall. Dr Rodas notified. verbal orders received to stop Activase infusion. Infusion stopped at 1630
[2021-11-23] MEDS: iodixanol 320 mg/mL 100mL Btl IV (16:48)
--- NOTE | 2021-11-23 16:56 | PC.NURSE ---
Continuous cardiac, BP, and Spo2 monitoring placed upon arrival into room.
--- NOTE | 2021-11-23 17:58 | PC.NURSE ---
Vitals from arrival until 1757 printed to scan into chart.
[2021-11-23 18:08] LABS: Add Urine Microscopic? YES; Bilirubin Urine Neg (Negative); Blood Urine 3+ (Negative); Glucose Urine UA Norm (Normal); Ketones Urine 1+ (Negative); Leukocyte Esterase Urine Negative (Negative); Nitrate Urine Negative (Negative); Protein Urine Neg (Negative); Sulfosalicylic Acid Urine Negative (Negative); Urine Appearance Clear (CLEAR); Urine Color Straw (Yellow); Urobilinogen Urine Neg (Negative); pH Urine 8 (5-7)
[2021-11-23 18:09] LABS: Add Urine Culture? No; Amphetamines Screen Urine Negative (Negative); Barbiturates Screen Urine Negative (Negative); Benzodiazepines Screen Urine Negative (Negative); Cocaine Screen Urine Negative (Negative); Opiate Screen Urine Positive (Negative); PCP Screen Urine Negative (Negative); Squamous Epithelial Cell Urine RARE /hpf (0-5); THC Screen Urine Negative (Negative)
[2021-11-23] MEDS: labetalol 5 mg/mL SDV 20mL 10 MG IVP (18:39)
--- NOTE | 2021-11-23 18:44 | XRR_ITS ---
PROCEDURE INFORMATION: Exam: XR Chest Exam date and time: 11/23/2021 7:05 PM Age: 76 years old Clinical indication: Device placement; Other: Et og tube placment; Additional info: ED / og tube placement TECHNIQUE: Imaging protocol: XR of the chest. Views: 1 view. COMPARISON: CR XR chest 1V portable [id number] 06/14/2020 3:06 PM FINDINGS: Tubes, catheters and devices: Endotracheal tube is in satisfactory position with its tip approximately 5 cm above the lynn. Lungs: There is some minimal subsegmental atelectasis in the left mid lung. Pleural spaces: Unremarkable. No pleural effusion. No pneumothorax. Heart/Mediastinum: Heart is within normal limits of size. Bones/joints: Unremarkable. XR/XR chest 1V portable [id number] IMPRESSION: Satisfactory position of endotracheal tube.
[2021-11-23] MEDS: propofol 1,000 MG/100 ML INJ 3.3 MG IV (19:08)
--- NOTE | 2021-11-23 19:12 | PC.NURSE ---
Intubation Set-up for intubation ordered by Dr. Whitfield. Resp present along with anesthesia, and ENT MD. 20mg etomidate and 150mg succlyncholine administered at 1828. 1829 intubation attempted. 183 OPA inserted and ventillations assisted 183 intubation attemted second time. 183 intubation successfull with color change ET tube 22 @ lip and secured by RT. 183 60 or Propfol administered by 185 Fentanyl IV infusion @ 50mg/hr 185 Veconium 10 mg given 190 new ET tube placed (size 7.5) 25 @ lip
--- NOTE | 2021-11-23 19:15 | PC.RESP ---
Patient was intubated with an 8.0 ET tube. OG was being placed by nurse. The OG tube was placed in the wrong area resulting in the cuff of the ET tube to be popped. Patient reintubated with a 7.5 ET tube.
--- NOTE | 2021-11-23 19:16 | PC.NURSE ---
This nurse spent approximately 4 hours critical care time with patient.
--- NOTE | 2021-11-23 19:36 | PC.NURSE ---
I have spoken with to hold zambrano catheter and oral gastric tube due to complications presently from bleeding.
[2021-11-23 20:06] LABS: Hematocrit 38.2 % (42.0-52.0); Hemoglobin 12.5 g/dL (11.7-16.6)
--- NOTE | 2021-11-23 21:15 | PC.NURSE ---
Pt. is awake and answering questions while intubated. Pt. states that he is comfortable and does not need any more sedation. Pt. shakes head and acknowledges that he understands what the situation is and states that he has no needs at this time.
[2021-11-23 21:49] LABS: SARS Covid-2 Antigen Negative (Negative)
[2021-11-23] MEDS: dexmedetomidine 400 MCG in sodium chloride 0.9% (100 ml) 100 ML 8.56 MCG IV (22:26)
[2021-11-24 08:32] LABS: Glucose Point of Care 123 mg/dL (70-110)
== END 2021-11-23 22:48 | disposition short-term general hospital (02) ==
PROVIDERS: Family Medicine; Emergency Provider Emergency Medicine; PCP Family Medicine
DX: I63.9 Cerebral infarction, unspecified (principal); R29.713 NIHSS score 13; S10.83XA Contusion of other specified part of neck, initial encounter; W19.XXXA Unspecified fall, initial encounter; Y92.121 Bathroom in nursing home as the place of occurrence of the external cause
CPT/HCPCS: 31500; 36416; 70450; 70496; 70498; 71045; 80053; 80306; 81001; 82962; 85014; 85018; 85025; 85610; 85730; 87426; 93005; 94002; 94799; 96365; 96366; 96367; 96375; 96376; 99291; 99292; J0330; J2704; J2997; J3010; J3490; J7050; Q9967

== ENCOUNTER 2022-06-13 15:34 | Emergency (ER) | payer MEDICARE, SELFPAY ==
[2022-06-13 15:36] VITALS: BP 169/91; PULSE 96; RESP 19; TEMP 36.1; O2SAT 94; BMI 34.5
[2022-06-13 15:39] VITALS: BP 186/94; PULSE 102; O2SAT 95
--- NOTE | 2022-06-13 15:57 | XRR_ITS ---
PROCEDURE INFORMATION: Exam: XR Chest Exam date and time: 06/13/2022 4:07 PM Age: 77 years old Clinical indication: Patient HX: Patient was here approximately 5 to 7 days ago and at that time had increasing shortness of breath and hypoxia. At the time of his presentation he declined any evaluation and was discharged against medical advice back to long-term care facility. Allegedly he is now reconsidered and is here for further evaluation. ; Additional info: SOB TECHNIQUE: Imaging protocol: Radiologic exam of the chest. Views: 1 view. COMPARISON: CR (CHEST, ) 11/23/2021 7:05 PM FINDINGS: Lungs: The lung bases are suboptimally assessed due to technique however the upper lungs are clear of focal consolidation. Tiny left basilar linear opacities similar to prior exam, likely atelectasis-scarring. Pleural spaces: Unremarkable. No pleural effusion. No pneumothorax. Heart/Mediastinum: Cardiac silhouette appears normal in size. No obvious vascular congestion. Bones/joints: No acute osseous findings. Other findings: Single view was submitted. ET tube has been removed. XR/XR chest 1V portable [id number] IMPRESSION: No obvious acute consolidation. Suboptimal lung base assessment. Followup including lateral view may be obtained if clinically indicated.
--- NOTE | 2022-06-13 15:58 | ECG_ITS ---
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 Measurements Intervals [place] Rate: 98 P: 61 [place]: 166 QRS: -29 QRSD: 95 T: 82 QT: 351 QTc: 448 Interpretive Statements SINUS RHYTHM WITH OCCASIONAL SUPRAVENTRICULAR PREMATURE COMPLEXES POSSIBLE LEFT ATRIAL ENLARGEMENT [-0.1mV P-WAVE IN V1/V2] LEFT VENTRICULAR HYPERTROPHY AND ST-T CHANGE [VOLTAGE CRITERIA PLUS ST/T ABNORMALITY] POSSIBLE ANTERIOR MYOCARDIAL INFARCTION , OF INDETERMINATE AGE [30 ms Q WAVE IN V3/V4, OR R < 0.2 mV IN V4] Compared to ECG 11/23/2021 15:09:31 ST (T wave) deviation now present Myocardial infarct finding now present T-wave abnormality no longer present Electronically Signed On 06-13-2022 22:44:26 CDT by Flores Orr M.D. [id number]
--- NOTE | 2022-06-13 15:59 | ED_ITS ---
HPI - SOB/Dyspnea General: Chief Complaint: Shortness of Breath/Dyspnea Stated Complaint: Possible PE Time Seen by Provider: 06/13/22 15:40 Source: patient, family and EMS Mode of arrival: EMS History of Present Illness: HPI Narrative: This patient returns to the emergency department via EMS from a local long-term care facility. Patient was here approximately 5 to 7 days ago and at that time had increasing shortness of breath and hypoxia. At the time of his presentation he declined any evaluation and was discharged AGAINST MEDICAL ADVICE back to long-term [facility]. Allegedly he is now reconsidered and is here for further evaluation. He has a history of COPD but no history of coronary artery disease. No history of thromboembolic events although does have a history of chronic lower extremity venous insufficiency. He is currently using supplemental oxygen something that he has not used prior to his previous emergency department visit. He states he is eaten today drank and had normal bowel movement, urinary output etc. He is a prior smoker. He also had apparent remote stroke this left him with a history of some cognitive decline. He has a history of bipolar disorder as well. He denies any fevers cough chest pain etc. Associated symptoms: Deny abdominal pain, chest pain, extremity pain, fever(s), nausea, palpitations or vomiting Related Data: Home oxygen amount: 3 liters Review of Systems Const: Denies: fever(s) or chills Eyes: Denies: change in vision ENMT: Denies: odynophagia, mouth pain, nasal discharge, nasal congestion or nasal obstruction Card: Denies: chest pain, palpitations or irregular heart rhythm Resp: Denies: productive cough or non-productive cough GI: Denies: abdominal pain, nausea, vomiting or diarrhea : Denies: flank pain, difficulty urinating, dysuria or urinary frequency Musc: Denies: neck pain, back pain, extremity pain or extremity swelling Skin/Breast: Reports: rash, pruritus and skin tenderness; Denies: erythema or photosensitivity Neuro: Denies: headache(s), numbness in extremities or weakness in extremities Physical Exam Narrative: EXAM NARRATIVE: The patient is alert makes good eye contact. Generally answers questions in a complete fashion with normal voice. Const: COMMON NORMALS: no acute distress, average body habitus, no limitations, healthy appearing and alert GENERAL APPEARANCE: cooperative and comfortable ORIENTATION/CONSCIOUSNESS: Yes oriented to person and Yes oriented to place HENMT: COMMON NORMALS: normocephalic, atraumatic, moist oral mucous membranes and oropharynx normal HEAD & SCALP: normocephalic and atraumatic Eye: COMMON NORMALS: Equal, round and reactive pupils present, EOMs intact bilaterally and conjunctivae normal CONJUNCTIVA: Yes conjunctivae normal PUPIL: Yes Equal, round and reactive pupils present Neck/C-Spine: COMMON NORMALS: full ROM, no lymphadenopathy, no JVD, Thyroid normal and No carotid bruits THYROID: Thyroid normal Chest: COMMONS NORMALS: normal inspection of the chest and normal palpation of entire chest wall Resp: COMMON NORMALS: normal respiratory effort, No retractions, No use of accessory muscles and clear to auscultation bilaterally AUSCULTATION: clear to auscultation bilaterally Cardio: COMMON NORMALS: no JVD, regular rate, regular rhythm, No murmurs present (Cardio) and Peripheral pulses 2+ throughout RATE: regular rate RHYTHM: regular rhythm PERIPHERAL PULSES: Peripheral pulses 2+ throughout GI: COMMON NORMALS: Normal to inspection, nondistended, normoactive bowel sounds present, Soft to palpation, non-tender and no masses PALPATION: Yes Soft to palpation : COMMON NORMALS: Yes no CVA tenderness BLADDER/KIDNEY EXAM: Yes no CVA tenderness Back/Pelvis: COMMON NORMALS: no CVA tenderness, thoracic and lumbar spine normal to inspection, no thoracic nor lumbar tenderness and thoraco-lumbar ROM normal Extremity: COMMON NORMALS: full ROM, capillary refill normal and no calf tenderness NARRATIVE EXTREMITY EXAM: Has markedly tender skin to the lower extremities with brawny discoloration Seshan as well as dry flaky dermis. Neuro: COMMON NORMALS: moves all extremities, no focal motor deficits and no sensory deficits noted SENSORIUM/ORIENTATION: Yes alert, Yes oriented to person and Yes oriented to place SPEECH: speech normal Psych: COMMON NORMALS: mental status grossly normal and cooperative Skin: COMMON NORMALS: no wounds, turgor normal and no petechiae NARRATIVE SKIN EXAM: Dry, flaky dermis to both lower extremities with brawny purplish discoloration to lower extremities from mid calf distal. GENERAL SKIN EXAM: turgor normal Course Reevaluation(s): Reevaluation #1: CTA is reassuring and that there is no evidence of thromboembolic disease or other lung pathology. He does have some esophageal changes that may need add itional work-up as a outpatient. He does have EKG which shows loss of anterior wall forces compared with prior EKGs. Time: 18:31 Reevaluation #2: I discussed current findings with the patient. We explored his expectations for care. I laid out that he potentially may have had a silent TN sometime in the past few weeks that may have been contributing to some of his subjective symptoms. Discussed possible scenarios such as angiogram, etc. for further work-up. He voiced understanding of this discussion but was not in favor of doing anything aggressive at this time.And no evidence of ketones. He is moderately hypertensive and given his history I think is probably reasonable to start him on amlodipine. His preference is to be discharged back to the long- term care facility since he knows he does not have a pulmonary embolus and that was his big concern and out of his family's. Time: 18:58 Reevaluation #3: Patient's pressure is trended downwards after the amlodipine. He otherwise is clinically stable and without any new findings on repeat examination. Again we discussed his current findings and that suggest he may if had a cardiac event sometime in the near past. Again acknowledges our discussion but desires to [facility]. I think we will continue on amlodipine to give him some blood pressure control. I discussed his expectations of long-term care and he does not want any aggressive intervention done. He will be transported back to long-term care facility per his wishes. Time: 20:29 Vital Signs: Vital signs: Vital Signs Temperature 96.9 F L 06/13/22 15:36 Pulse Rate 101 H 06/13/22 20:01 Respiratory Rate 19 H 06/13/22 20:01 Blood Pressure 176/97 06/13/22 20:01 Pulse Oximetry 96 06/13/22 20:01 Oxygen Delivery Me thod 06/13/22 16:39 Oxygen Flow Rate 3 06/13/22 16:39 MDM - SOB/Dyspnea Medical Decision Making This is a pleasant gentleman who resides in a long-term care facility return to the emergency department for a evaluation of possible pulmonary embolus. He had refused this testing earlier this month when he was in the emergency department for an episode of dyspnea. His evaluation here was negative for any signs of pulmonary embolus, etc. He did have an elevated troponin but this is consistent with prior elevated troponins he is demonstrated previously. He does have some anterior wall changes on his EKG which are suggestive of possible remote or recent cardiac event however no evidence at this time of ongoing ischemia. Discussed additional work-up but he declined that at this time citing that he did not want any aggressive therapy. That would include cardiac and coronary angiogram and/or stent placement etc. I did manage to talk him into taking a blood pressure medication and we will continue him on amlodipine. He is stable and has intact decision-making capacity and desires to be returned back to his long-term care facility. Medical Records I reviewed the patient's medical records. Lab Data I reviewed the patient's lab results. : 06/13/22 15:32 06/13/22 15:32 Labs/Radiology: Radiology Impressions Chest X-Ray 06/13/22 15:57 IMPRESSION: No obvious acute consolidation. Suboptimal lung base assessment. Followup including lateral view may be obtained if clinically indicated. Chest CTA 06/13/22 17:11 IMPRESSION: 1. No acute lung finding or significant lung disease. 2. Esophageal wall thickening with distal paraesophageal lymph nodes which are somewhat suspicious for esophageal malignancy. Severe esophagitis may also be considered. Endoscopy and possible tissue sampling correlation is recommended. 3. No enlarged mediastinal adenopathy however metastatic nodes with no significant enlargement can not be excluded in this setting. 4. Incidental hepatic and renal findings as above. COMMENTS: Consistent with the [employer]'s Incidental Findings Committee white paper (J Am Robbie Radiol 2018): Any incidental renal lesion less than 1 cm or classified as too small to characterize, or any incidental cystic renal lesion characterized as simple-appearing, is likely benign. No follow-up imaging is recommended for these lesions per consensus recommendations based on imaging criteria. Laboratory Results WBC 7.0 10^3/uL (4.0-10.0) 06/13/22 15:32 RBC 4.45 10^6/uL (4.1-5.3) 06/13/22 15:32 Hgb 13.7 g/dL (11.7-16.6) 06/13/22 15:32 Hct 44.5 % (42.0-52.0) 06/13/22 15:32 MCV 100.0 fl (80-94) H 06/13/22 15:32 MCH 30.8 pg (28.0-34.0) 06/13/22 15: MCHC 30.8 g/dL (30.0-36.0) 06/13/22 15: RDW 14.5 % (12.1-15.1) 06/13/22 15:32 Plt Count 264 10^3/cmm (130-400) 06/13/22 15: MPV 9.1 fL (7.4-10.4) 06/13/22 15: Neut % (Auto) 65.2 % 06/13/22 15: Lymph % (Auto) 20.5 % 06/13/22 15: [place] % (Auto) 11.6 % 06/13/22: Eos % (Auto) 1.9 % 06/13/22: Baso % (Auto) 0.4 % 06/13/22: Neut # (Auto) 4.54 10^3/uL (1.8-7.7) 06/13/22 15: Lymph # (Auto) 1.4 10^3/uL (0.8-4.8) 06/13/22 15:32 [place] # (Auto) 0.8 10^3/uL (0.2-0.9) 06/13/22 15: Eos # (Auto) 0.1 10^3/uL (0.0-0.8) 06/13/22: Baso # (Auto) 0.0 10^3/uL (0.0-0.1) 06/13/22: Nucleated RBC % (auto) 0 % 06/13/22: Nucleated RBCs # 0.0 /100WBC 06/13/22 15:32 D-Dimer 1.01 ug/mIFEU (0-0.59) H 06/13/22 15:32 Sodium 140 mmol/L (136-145) 06/13/22 15:32 Potassium 3.8 mmol/L (3.5-5.1) 06/13/22 15:32 Chloride 91 mmol/L (98-107) L 06/13/22 15:32 Carbon Dioxide 42 mmol/L (22-29) H* 06/13/22 15:32 Anion Gap 10.8 (5-19) 06/13/22 15:32 BUN 34 mg/dL (8-23) H 06/13/22 15:32 Creatinine 1.1 mg/dL (0.7-1.2) 06/13/22 15:32 GFR Calculation Not Reportable 06/13/22 15:32 Glucose 107 mg/dL (65-115) 06/13/22 15:32 Calculated Osmolality 298 mOsm/kg (285-295) H 06/13/22 15:32 Calcium 9.6 mg/dL (8.5-10.5) 06/13/22 15:32 Total Bilirubin 0.4 mg/dL (0.15-1.2) 06/13/22 15:32 AST 21 U/L (0-40) 06/13/22 15:32 ALT 8 U/L (0-41) 06/13/22 15:32 Alkaline Phosphatase 74 U/L (40-130) 06/13/22 15:32 Troponin T Gen 5 ng/L 48 ng/L (0-15) H 06/13/22 15:32 Troponin T 120 Minute 45.83 ng/L (0-15) H 06/13/22 19:13 Delta Troponin T -2.17 ABS# (0-10) L 06/13/22 19:13 NT-Pro-B Natriuret Pep 438 pg/mL (0-450) 06/13/22 15:32 Total Protein 7.6 g/dL (6.6-8.7) 06/13/22 15:32 Albumin 3.4 g/dL (3.5-5.2) L 06/13/22 15:32 Globulin 4.2 g/dL (1.3-4.6) 06/13/22 15:32 EKG Data EKG 1: I personally reviewed and interpreted this EKG as follows: Interpretation: EKG on the study reveals a ventricular rate of 98 bpm. Occasional extrasystoles consistent with probable premature atrial contractions noted. No acute ST-T wave changes noted. He does have loss of R wave height across the anterior precordial leads suggestive of possible remote anterior wall TN. This is a change compared with prior tracings available with the system. Discharge Plan Discharge Patient Disposition: LTCH w Plan Readm Clinical Impression: Hypertension, Chronic obstructive pulmonary disease Condition: Stable Prescriptions: New amlodipine 5 mg tablet 5 mg PO DAILY Qty: 30 1RF No Action ipratropium-albuterol 0.5 mg-3 mg(2.5 mg base)/3 mL Solution For Nebulization 3 ml INHALATION Q8H PRN (Reason: Shortness Of Breath Or Wheezing) morphine concentrate 100 mg/5 mL (20 mg/mL) solution See Rx Instructions .ROUTE .COMPLEX PRN (Reason: Pain) Rx Instructions: 0.5-1 ML ORAL EVERY 2 HOURS NEEDED lorazepam 2 mg/mL Concentrate 1 mg PO Q6H PRN (Reason: Anxiety) magnesium hydroxide [Milk of Magnesia] 400 mg/5 mL Suspension 15 ml PO BID PRN (Reason: Stomach Upset) bisacodyl [Bisac-Evac] 10 mg Suppository 10 mg MO DAILY PRN (Reason: Constipation) Fleet Enema 19-7 gram/118 mL Enema 118 ml MO DAILY PRN (Reason: Constipation) nystatin [Nystop] 100,000 unit/gram Powder 1 applic TOPICAL QID Excedrin Migraine 250-250-65 mg Tablet 1 tab PO BID PRN (Reason: Pain) [id number] 15-3.6 mg Lozenge 1 tita MUCOUS MEMBRANE PRN PRN (Reason: Sore Throat) Discharge Orders: Discharge ED (Routine); Ordered 06/13/22 Ordered By: Maxim Macdonald Referrals: Madelin Venegas MD [Primary Care Provider] - Discharge Diet: Usual diet Discharge Activity: Resume usual activity Activity Restrictions/Additional Instructions: As we discussed you have evidence that you may have had a heart attack sometime in the past. We have prescribed a medication to help control your blood pressure. You should take that as prescribed on a daily basis. You should follow-up with your regular doctor at the long-term care facility in the next week to 10 days for reevaluation and adjustment of medications as indicated. If it anytime you develop any sustained chest pain increasing shortness of breath or any other concerning symptoms you are welcome to return to this emergency department at any time. Coding Level of Care Code ED Health Psychologist for Maki Marinelli Exam Comprehensive
[2022-06-13 16:09] LABS: Basophils % 0.4 %; Eosinophils # 0.1 10^3/uL (0.0-0.8); Eosinophils % 1.9 %; Hematocrit 44.5 % (42.0-52.0); Hemoglobin 13.7 g/dL (11.7-16.6); Lymphocytes # 1.4 10^3/uL (0.8-4.8); Lymphocytes % 20.5 %; Mean Corpuscular HGB Conc 30.8 g/dL (30.0-36.0); Mean Corpuscular Hemoglobin 30.8 pg (28.0-34.0); Mean Platelet Volume 9.1 fL (7.4-10.4); Monocytes # 0.8 10^3/uL (0.2-0.9); Monocytes % 11.6 %; Neutrophils # 4.54 10^3/uL (1.8-7.7); Neutrophils % 65.2 %; Nucleated Red Blood Cells % 0 %; Platelet Count 264 10^3/cmm (130-400); Red Blood Count 4.45 10^6/uL (4.1-5.3); Red Cell Distribution Width 14.5 % (12.1-15.1)
--- NOTE | 2022-06-13 16:12 | PC.NURSE ---
PT PLACED ON CONTINUOUS NIBP, SPO2, AND CM
[2022-06-13 16:26] LABS: D Dimer 1.01 ug/mIFEU (0-0.59)
[2022-06-13 16:39] VITALS: BP 148/95; PULSE 103; RESP 13; O2SAT 94
[2022-06-13 16:55] LABS: Alanine Aminotransferase 8 U/L (0-41); Albumin Level 3.4 g/dL (3.5-5.2); Alkaline Phosphatase 74 U/L (40-130); Anion Gap 10.8 (5-19); Aspartate Amino Transferase 21 U/L (0-40); Blood Urea Nitrogen 34 mg/dL (8-23); Calcium 9.6 mg/dL (8.5-10.5); Chloride 91 mmol/L (98-107); Globulin 4.2 g/dL (1.3-4.6); Glucose 107 mg/dL (65-115); NT Pro B Type Natriuretic Pept 438 pg/mL (0-450); Osmolality Calculated 298 mOsm/kg (285-295); Potassium 3.8 mmol/L (3.5-5.1); Sodium 140 mmol/L (136-145); Total Bilirubin 0.4 mg/dL (0.15-1.2); Total Protein 7.6 g/dL (6.6-8.7)
[2022-06-13 16:58] LABS: Carbon Dioxide 42 mmol/L (22-29)
--- NOTE | 2022-06-13 17:11 | CTR_ITS ---
PROCEDURE INFORMATION: Exam: CTA Chest With Contrast Exam date and time: 06/13/2022 5:45 PM Age: 77 years old Clinical indication: Shortness of breath; Additional info: Hypoxia and elevated dimer TECHNIQUE: Imaging protocol: Computed tomographic angiography of the chest with contrast. 3D rendering (Not supervised by radiologist): MIP and/or 3D reconstructed images were created by the technologist. Radiation optimization: All CT scans at this facility use at least one of these dose optimization techniques: automated exposure control; mA and/or kV adjustment per patient size (includes targeted exams where dose is matched to clinical indication); or iterative reconstruction. Contrast material: OMNI 350; Contrast volume: 100 ml; Contrast route: INTRAVENOUS (IV); COMPARISON: CT angio chest PE protcl [id number] 01/27/2016 4:52 PM RADIATION DOSE METRICS: Total DLP (mGy-cm): 564.12 FINDINGS: Pulmonary arteries: Normal. No pulmonary emboli. Aorta: No aortic aneurysm. No aortic dissection. Lungs: Bibasilar linear scarring-atelectasis. No acute lung consolidation or ground-glass opacity. Pleural spaces: Unremarkable. No pneumothorax. No pleural effusion. Heart: No cardiomegaly. No pericardial effusion. Lymph nodes: Nonenlarged superior mediastinal lymph nodes and AP window lymph nodes are noted, measuring up to 7 mm. Diaphragm: Hiatal hernia measuring about 3-4 cm. There is also moderate-marked mid/distal esophageal wall thickening. Mild proximal thoracic esophageal wall thickening is also present Considerations include neoplastic disease versus severe esophagitis. A few paraesophageal lymph nodes are also noted, measuring up to 7 mm. Liver: Probable hepatic steatosis with no obvious cirrhosis. Calcified hepatic granulomas. Well-defined hypodense left hepatic lobe lesion measuring 2.8 cm, likely hepatic cyst, without significant change. Kidneys and ureters: Partially visualized large exophytic right simple cystic mass measuring 9.2 cm. Posterior exophytic left renal cyst measuring at least 5 cm. Bones/joints: No acute fracture. Soft tissues: Images are somewhat degraded due to external streak artifacts arising from patient's arm(s). CT/CT angio chest PE protcl [id number] IMPRESSION: 1. No acute lung finding or significant lung disease. 2. Esophageal wall thickening with distal paraesophageal lymph nodes which are somewhat suspicious for esophageal malignancy. Severe esophagitis may also be considered. Endoscopy and possible tissue sampling correlation is recommended. 3. No enlarged mediastinal adenopathy however metastatic nodes with no significant enlargement can not be excluded in this setting. 4. Incidental hepatic and renal findings as above. COMMENTS: Consistent with the [employer]'s Incidental Findings Committee white paper (J Am Robbie Radiol 2018): Any incidental renal lesion less than 1 cm or classified as too small to characterize, or any incidental cystic renal lesion characterized as simple-appearing, is likely benign. No follow-up imaging is recommended for these lesions per consensus recommendations based on imaging criteria.
[2022-06-13 17:39] VITALS: BP 172/86; PULSE 99; RESP 14; O2SAT 95
[2022-06-13] MEDS: iohexol 350 mg/mL 100 mL Btl IV (17:51)
[2022-06-13 18:37] LABS: Troponin T (5th) Once 48 ng/L (0-15)
[2022-06-13] MEDS: amlodipine 5 mg Tablet PO (19:04)
[2022-06-13 19:46] LABS: Troponin 5 2HR 45.83 ng/L (0-15)
[2022-06-13 19:47] LABS: Troponin 5 2HR Delta -2.17 ABS# (0-10)
[2022-06-13 20:01] VITALS: BP 176/97; PULSE 101; RESP 19; O2SAT 96
== END 2022-06-13 21:17 ==
PROVIDERS: Emergency Provider Emergency Medicine; PCP Family Medicine
DX: J44.9 Chronic obstructive pulmonary disease, unspecified (principal); I10 Essential (primary) hypertension
CPT/HCPCS: 71045; 71275; 80053; 83880; 84484; 85025; 85378; 93005; 99285; Q9967

== ENCOUNTER 2022-12-21 16:52 | Emergency (ER) | payer MEDICARE, SELFPAY ==
[2022-12-21 16:53] VITALS: BP 176/85; PULSE 110; RESP 16; O2SAT 96
--- NOTE | 2022-12-21 16:55 | ED_ITS ---
HPI - GI Bleed General: Chief complaint: GI Bleed Stated complaint: Possible GI bleed Time Seen by Provider: 12/21/22 16:53 Source: patient Mode of arrival: EMS History of Present Illness: 77-year-old male presents from the senior care with complaints of upper GI bleed evidently yesterday had an episode of bright gross hematemesis he tells me this was discarded and he had another episode of coffee-ground like emesis. He is very concerned about pain medicine on arrival here he tells me he was sent here for an ultrasound that he can be admitted to hospice although he cannot give me much for details. He does admit he is a former heavy drinker but quit several years ago he never had any liver problems that he was aware of no previous GI bleeds he is on aspirin as needed but no chronic anticoagulation or other antiplatelet therapies. MD complaint: coffee ground emesis and gross hematemesis Onset (ago): day(s) (1) Severity: mild Relieving factors: none Exacerbating factors: none Associated symptoms: Reports nausea and poor appetite; Denies abdominal pain, chills, easy bruising, epistaxis, fever(s), headache(s), malaise, other bleeding, rash, syncope, vomiting or weakness Review of Systems Const: Denies: fever(s), chills, fatigue or malaise ENMT: Denies: epistaxis Card: Denies: chest pain, palpitations, irregular heart rhythm or syncope Resp: Denies: dyspnea, productive cough or non-productive cough GI: Reports: nausea; Denies: abdominal pain or vomiting : Denies: flank pain, dysuria, urinary frequency or urinary urgency Skin/Breast: Denies: rash Neuro: Denies: headache(s) Iraj/Lymph: Denies: easy bruising PFS ED PFSH: Medical History (Updated 12/21/22 @ 17:36 by Eliazar Rodas DO) Chronic obstructive pulmonary disease Hypertension Physical Exam Const: GENERAL APPEARANCE: cooperative and comfortable ORIENTATION/CONSCIOUSNESS: Yes awake, Yes oriented to person, Yes oriented to place and Yes oriented to time HENMT: COMMON NORMALS: normocephalic, atraumatic and hearing grossly normal bilaterally HEAD & SCALP: normocephalic and atraumatic Resp: COMMON NORMALS: normal respiratory effort, No retractions, No use of accessory muscles and clear to auscultation bilaterally AUSCULTATION: clear to auscultation bilaterally Cardio: COMMON NORMALS: regular rate, regular rhythm and No murmurs present (Cardio) RATE: regular rate RHYTHM: regular rhythm GI: COMMON NORMALS: Soft to palpation and No hepatosplenomegaly present AUSCULTATION: Yes normoactive bowel sounds PALPATION: Yes Soft to palpation, No Tenderness to palpation present (GI), No Guarding due to palpation present (GI) and Yes No hepatosplenomegaly present Extremity: GENERAL: Yes edema (2+ edema bilateral lower extremities chronic venous stasis changes) Neuro: SENSORIUM/ORIENTATION: Yes oriented to person, Yes oriented to place and Yes oriented to time Skin: COMMON NORMALS: no rashes or lesions noted GENERAL SKIN EXAM: no rashes or lesions noted Course Vital Signs: Vital signs: Vital Signs Pulse Rate 95 12/21/22 18:03 Respiratory Rate 20 H 12/21/22 18:22 Blood Pressure 170/80 12/21/22 18:03 Pulse Oximetry 99 12/21/22 18:03 Oxygen Delivery Me thod Room Air 12/21/22 16:53 MDM - GI Bleed Medical Decision Making Hemoglobin 10.3 will monitor BUN is normal. He called the senior care they did not report any significant upper GI bleed symptoms. I will discharge patient back to the senior care for routine cares repeat hemoglobin in 2 days. Medical Records I reviewed the patient's medical records. Lab Data I reviewed the patient's lab results. 12/21/22 16:58 12/21/22 16:58 Laboratory Results WBC 7.9 10^3/uL (4.0-10.0) 12/21/22 16:58 RBC 3.90 10^6/uL (4.1-5.3) L 12/21/22 16:58 Hgb 10.3 g/dL (11.7-16.6) L 12/21/22 16:58 Hct 34.8 % (42.0-52.0) L 12/21/22 16:58 MCV 89.2 fl (80-94) 12/21/22 16:58 MCH 26.4 pg (28.0-34.0) L 12/21/22 16:58 MCHC 29.6 g/dL (30.0-36.0) L 12/21/22 16:58 RDW 14.2 % (12.1-15.1) 12/21/22 16:58 Plt Count 325 10^3/cmm (130-400) 12/21/22 16:58 MPV 9.0 fL (7.4-10.4) 12/21/22 16:58 Neut % (Auto) 79.8 % 12/21/22 16:58 Lymph % (Auto) 11.3 % 12/21/22 16:58 [place] % (Auto) 7.9 % 12/21/22 16:58 Eos % (Auto) 0.3 % 12/21/22 16:58 Baso % (Auto) 0.3 % 12/21/22 16:58 Neut # (Auto) 6.27 10^3/uL (1.8-7.7) 12/21/22 16:58 Lymph # (Auto) 0.9 10^3/uL (0.8-4.8) 12/21/22 16:58 [place] # (Auto) 0.6 10^3/uL (0.2-0.9) 12/21/22 16:58 Eos # (Auto) 0.0 10^3/uL (0.0-0.8) 12/21/22 16:58 Baso # (Auto) 0.0 10^3/uL (0.0-0.1) 12/21/22 16:58 Nucleated RBC % (auto) 0 % 12/21/22 16:58 Nucleated RBCs # 0.0 /100WBC 12/21/22 16:58 PT 15.30 SECONDS (12.1-14.9) H 12/21/22 16:58 INR 1.17 (0.8-1.2) 12/21/22 16:58 APTT 33.6 SECONDS (23.9-36.7) 12/21/22 16:58 Sodium 141 mmol/L (136-145) 12/21/22 16:58 Potassium 4.5 mmol/L (3.5-5.1) 12/21/22 16:58 Chloride 100 mmol/L (98-107) 12/21/22 16:58 Carbon Dioxide 31 mmol/L (22-29) H 12/21/22 16:58 Anion Gap 14.5 (5-19) 12/21/22 16:58 BUN 15 mg/dL (8-23) 12/21/22 16:58 Creatinine 1.0 mg/dL (0.7-1.2) 12/21/22 16:58 GFR Calculation Not Reportable 12/21/22 16:58 Glucose 101 mg/dL (65-115) 12/21/22 16:58 Calculated Osmolality 293 mOsm/kg (285-295) 12/21/22 16:58 Calcium 9.1 mg/dL (8.5-10.5) 12/21/22 16:58 Total Bilirubin 0.4 mg/dL (0.15-1.2) 12/21/22 16:58 AST 13 U/L (0-40) 12/21/22 16:58 ALT < 5 U/L (0-41) 12/21/22 16:58 Alkaline Phosphatase 75 U/L (40-130) 12/21/22 16:58 Total Protein 7.6 g/dL (6.6-8.7) 12/21/22 16:58 Albumin 3.7 g/dL (3.5-5.2) 12/21/22 16:58 Globulin 3.9 g/dL (1.3-4.6) 12/21/22 16:58 Discharge Plan Discharge Patient Disposition: Home Clinical Impression: Anemia Condition: Stable Prescriptions: New Protonix 40 mg tablet,delayed release (DR/EC) 40 mg PO DAILY Qty: 30 0RF No Action ipratropium-albuterol 0.5 mg-3 mg(2.5 mg base)/3 mL Solution For Nebulization 3 ml INHALATION Q8H PRN (Reason: Shortness Of Breath Or Wheezing) morphine concentrate 100 mg/5 mL (20 mg/mL) solution See Rx Instructions .ROUTE .COMPLEX PRN (Reason: Pain) Rx Instructions: 0.5-1 ML ORAL EVERY 2 HOURS NEEDED lorazepam 2 mg/mL Concentrate 1 mg PO Q6H PRN (Reason: Anxiety) amlodipine 5 mg tablet 5 mg PO DAILY Qty: 30 1RF magnesium hydroxide [Milk of Magnesia] 400 mg/5 mL Suspension 15 ml PO BID PRN (Reason: Stomach Upset) bisacodyl [Bisac-Evac] 10 mg Suppository 10 mg [place] DAILY PRN (Reason: Constipation) Fleet Enema 19-7 gram/118 mL Enema 118 ml GA DAILY PRN (Reason: Constipation) nystatin [Nystop] 100,000 unit/gram Powder 1 applic TOPICAL QID Excedrin Migraine 250-250-65 mg Tablet 1 tab PO BID PRN (Reason: Pain) [id number] 15-3.6 mg Lozenge 1 tita MUCOUS MEMBRANE PRN PRN (Reason: Sore Throat) Discharge Orders: Discharge ED (Routine); Ordered 12/21/22 Ordered By: Eliazar Rodas Referrals: Madelin Venegas MD [Primary Care Provider] - Discharge Diet: Usual diet Discharge Activity: Resume usual activity Patient Instructions: Opioid Safety, Pain Management Activity Restrictions/Additional Instructions: You were seen today with reported GI bleed your hemoglobin is stable at 10 3. Your BUN is normal which indicates that it is unlikely of an upper GI bleed recommend that you repeat a hemoglobin at the senior care in 2 days. We will also have you start Protonix 40 mg daily. Coding Level of Care Code ED Electrical Project Engineer for Maki Marinelli
[2022-12-21 17:11] LABS: Basophils % 0.3 %; Eosinophils % 0.3 %; Hematocrit 34.8 % (42.0-52.0); Hemoglobin 10.3 g/dL (11.7-16.6); Lymphocytes # 0.9 10^3/uL (0.8-4.8); Lymphocytes % 11.3 %; Mean Corpuscular HGB Conc 29.6 g/dL (30.0-36.0); Mean Corpuscular Hemoglobin 26.4 pg (28.0-34.0); Mean Corpuscular Volume 89.2 fl (80-94); Monocytes # 0.6 10^3/uL (0.2-0.9); Monocytes % 7.9 %; Neutrophils # 6.27 10^3/uL (1.8-7.7); Neutrophils % 79.8 %; Nucleated Red Blood Cells % 0 %; Platelet Count 325 10^3/cmm (130-400); Red Cell Distribution Width 14.2 % (12.1-15.1); White Blood Count 7.9 10^3/uL (4.0-10.0)
--- NOTE | 2022-12-21 17:15 | PC.NURSE ---
[facility] stated that he asked a nurse to come look at the blood he coughed up but they stated that it was tea-colored. The patient told the care home that he wants to go on hospice and requested to come to the hospital.
[2022-12-21 17:27] LABS: Alanine Aminotransferase < 5 U/L (0-41); Albumin Level 3.7 g/dL (3.5-5.2); Alkaline Phosphatase 75 U/L (40-130); Anion Gap 14.5 (5-19); Aspartate Amino Transferase 13 U/L (0-40); Blood Urea Nitrogen 15 mg/dL (8-23); Calcium 9.1 mg/dL (8.5-10.5); Carbon Dioxide 31 mmol/L (22-29); Chloride 100 mmol/L (98-107); Globulin 3.9 g/dL (1.3-4.6); Glucose 101 mg/dL (65-115); Osmolality Calculated 293 mOsm/kg (285-295); Potassium 4.5 mmol/L (3.5-5.1); Sodium 141 mmol/L (136-145); Total Bilirubin 0.4 mg/dL (0.15-1.2); Total Protein 7.6 g/dL (6.6-8.7)
[2022-12-21] MEDS: morphine 4 mg/mL SDV 1 mL 2 MG IVP ×2 (17:30→18:22)
[2022-12-21 17:43] LABS: INR 1.17 (0.8-1.2)
[2022-12-21 17:44] LABS: Partial Thromboplastin Time 33.6 SECONDS (23.9-36.7)
[2022-12-21 18:03] VITALS: BP 170/80; PULSE 95; O2SAT 99
[2022-12-21 18:22] VITALS: RESP 20
== END 2022-12-21 19:27 | disposition home or self-care (01) ==
PROVIDERS: Emergency Provider Family Medicine; PCP Family Medicine
DX: D64.9 Anemia, unspecified (principal); J44.9 Chronic obstructive pulmonary disease, unspecified; I10 Essential (primary) hypertension
CPT/HCPCS: 80053; 85025; 85610; 85730; 96374; 96376; 99284; J2270